=== PATIENT | female | born 1935 | race Caucasian/White ===

== ENCOUNTER 2020-02-13 19:09 | Inpatient (IN) | payer OTHER ==
[~2020-02-13] VITALS: Ht 165.1 cm; Wt 68.0 kg
[~2020-02-13 19:09] MED LIST: DIOVAN40 MG PO; METROPOROL
[2020-02-13] MEDS ORDERED: LOSARTAN (19:45)
[2020-02-13] MEDS ORDERED: [UNRECOGNIZED DRUG - OTHER] (19:46)
[2020-02-14] MEDS ORDERED: LOSARTAN POTAS100 MG (08:24)
[2020-02-14] MEDS ORDERED: NORVASC2.5 MG (08:24)
[2020-02-14] MEDS ORDERED: TOPROL XL25 M1 (08:25)
[2020-03-11] MEDS ORDERED: COZAAR100 MG PO (10:45)
[2020-03-11] MEDS ORDERED: TOPROL XL50 M1 PO (10:45)
[2020-03-11] MEDS ORDERED: NORVASC5 MG PO (10:46)
[2020-03-11] MEDS ORDERED: GABAPENTIN400 MG PO (10:46)
[2020-03-11] MEDS ORDERED: DULOX PO (10:47)
[2020-03-11] MEDS ORDERED: [UNRECOGNIZED DRUG - OTHER] PO (10:48)
[2020-03-11] MEDS ORDERED: FORTAMET500 MG PO (10:49)
[2020-03-11] MEDS ORDERED: CRESTOR20 MG PO (10:49)
[2020-03-11] MEDS ORDERED: FOSAMAX70 MG PO (10:50)
[2020-03-11] MEDS ORDERED: CALTRATE PO (10:50)
== END 2020-02-18 17:21 | disposition home or self-care (01) | DRG 552 ==
LOC: ER 19:09 → SEC-K 22:11 → SURH 22:11
PROVIDERS: ADMIT Internal Medicine; ATTEND Internal Medicine
PROC: BR29ZZZ Computerized Tomography (CT Scan) of Lumbar Spine (ICD-10-PCS; principal; 2020-02-14)
PROC: B44GZZZ Ultrasonography of Left Lower Extremity Arteries (ICD-10-PCS; 2020-02-14)
DX: M54.17 Radiculopathy, lumbosacral region (principal); M54.5 Low back pain; E13.9 Other specified diabetes mellitus without complications; I10 Essential (primary) hypertension; M51.36 Other intervertebral disc degeneration, lumbar region; Z98.1 Arthrodesis status; Z20.828 Contact with and (suspected) exposure to other viral communicable diseases; M79.662 Pain in left lower leg; Z79.84 Long term (current) use of oral hypoglycemic drugs

== ENCOUNTER → 2020-03-09 08:00 | Outpatient (CLI) | payer OTHER ==
[~2020-03-09 08:00] MED LIST changes: +CALTRATE PO; +COZAAR100 MG PO; +CRESTOR20 MG PO; +DULOX PO; +FORTAMET500 MG PO; +FOSAMAX70 MG PO; +GABAPENTIN400 MG PO; +LOSARTAN; +LOSARTAN POTAS100 MG; +NORVASC2.5 MG; +NORVASC5 MG PO; +TOPROL XL25 M1; +TOPROL XL50 M1 PO; +[UNRECOGNIZED DRUG - OTHER]; +[UNRECOGNIZED DRUG - OTHER] PO
== END | disposition home or self-care (01) ==
LOC: LAB 08:00 → CIR.AMB 03-14 14:36 → EDSTATUS 03-15 09:30 → CIR.AMB 03-15 09:30
PROVIDERS: ATTEND Anesthesiology Pain Medicine
DX: U07.1 COVID-19 (principal); M51.26 Other intervertebral disc displacement, lumbar region; M47.816 Spondylosis without myelopathy or radiculopathy, lumbar region; Z11.59 Encounter for screening for other viral diseases; R05 Cough; I10 Essential (primary) hypertension; M54.16 Radiculopathy, lumbar region; M51.36 Other intervertebral disc degeneration, lumbar region; D68.8 Other specified coagulation defects; Z01.810 Encounter for preprocedural cardiovascular examination; Z01.812 Encounter for preprocedural laboratory examination; Z01.811 Encounter for preprocedural respiratory examination

== ENCOUNTER 2020-05-31 06:48 | Day surgery (SDC) | payer OTHER | END 2020-05-31 12:05 | disposition home or self-care (01) | LOC: CIR.AMB 06:48 | PROVIDERS: ATTEND Anesthesiology Pain Medicine | DX: M51.26 Other intervertebral disc displacement, lumbar region (principal); Z20.828 Contact with and (suspected) exposure to other viral communicable diseases ==

== ENCOUNTER 2020-09-28 10:22 | Outpatient (CLI) | payer OTHER | END 2020-09-28 10:34 | disposition home or self-care (01) | LOC: LAB 10:22 | PROVIDERS: ATTEND Anesthesiology Pain Medicine | DX: M51.26 Other intervertebral disc displacement, lumbar region (principal); Z20.828 Contact with and (suspected) exposure to other viral communicable diseases; I10 Essential (primary) hypertension ==

== ENCOUNTER 2020-10-11 06:08 | Day surgery (SDC) | payer OTHER | END 2020-10-11 11:00 | disposition home or self-care (01) | LOC: CIR.AMB 06:08 | PROVIDERS: ATTEND Anesthesiology Pain Medicine | DX: M51.26 Other intervertebral disc displacement, lumbar region (principal); Z20.822 Contact with and (suspected) exposure to COVID-19 ==